=== PATIENT | female | born 1950 | race African-American/Black ===

== ENCOUNTER 2018-03-17 17:23 | Emergency (ER) | payer OTHER ==
[~2018-03-17] VITALS: Ht 162.6 cm; Wt 97.5 kg
[2018-03-17] MEDS ORDERED: KEFLEX500 M1 PO (18:29)
[2018-03-17 19:00] VITALS: BP 133/69
== END 2018-03-17 19:02 | disposition home or self-care (01) ==
LOC: ER 17:23
DX: S99.921A Unspecified injury of right foot, initial encounter (principal); W04.XXXA Fall while being carried or supported by other persons, initial encounter; Y93.89 Activity, other specified; Y92.512 Supermarket, store or market as the place of occurrence of the external cause; Y99.8 Other external cause status; I10 Essential (primary) hypertension